=== PATIENT | male | born 1980 | race Caucasian/White ===

== ENCOUNTER 2016-11-22 11:52 | Emergency (ER) | payer BC ==
[~2016-11-22] VITALS: Ht 177.8 cm; Wt 77.3 kg
[2016-11-22] MEDS ORDERED: ANTI-ANXIETY PO (12:01)
[2016-11-22 13:06] LABS: BASO % 0.3 % (0.0-2.0); EOS # 0.2 (0.0-0.7); EOS % 2.1 % (0-4.0); GRAN # 7.2 (1.4-6.5); HEMATOCRIT 44.3 % (42.0-52.0); HEMOGLOBIN 14.5 g/dl (13.5-18.0); LYMPH # 1.3 (1.2-3.4); LYMPH % 13.7 % (20.0-51.0); MEAN CELL VOLUME 86 fl (80.0-100.0); MEAN CORPUSCULAR HEMOGLOBIN 28 pg (27.0-31.0); MEAN CORPUSCULAR HGB CONC 33 g/dl (33.0-37.0); MEAN PLATELET VOLUME 10.5 fl (7.4-10.4); MONO # 0.5 (0.1-0.6); MONO % 5.7 % (1.7-9.3); PLATELET COUNT 176 K/mm3 (130-400); RED BLOOD COUNT 5.16 M/mm3 (4.20-5.60); REDCELL DISTRIBUTION WIDTH-CV 12.9 % (11.5-14.5); WHITE BLOOD COUNT 9.2 K/mm3 (4.8-10.8)
[2016-11-22 13:12] VITALS: TEMP 99
[2016-11-22 13:16] LABS: ALBUMIN 4.5 gm/dL (3.5-5.0); BILIRUBIN,TOTAL 0.8 mg/dL (0.0-1.0); CALCIUM 9.4 mg/dL (8.4-10.2); CREATININE, serum 0.86 mg/dL (0.66-1.25); POTASSIUM 3.9 mmol/L (3.4-5.0); TOTAL PROTEIN 7.7 gm/dL (6.4-8.2)
[2016-11-22 14:20] VITALS: BP 132/69; PULSE 70
== END 2016-11-22 14:22 | disposition home or self-care (01) ==
LOC: COL.ER 11:52
PROVIDERS: Nurse Practitioner
DX: F41.0 Panic disorder [episodic paroxysmal anxiety] (principal)